=== PATIENT | male | born 1975 ===

== ENCOUNTER 2024-12-24 09:45 | Inpatient (IN) | payer OTHER ==
[~2024-12-24] VITALS: Ht 30.5 cm; Wt 103.4 kg
[2024-12-24 11:40] LABS: URINE APPEARANCE Clear; URINE BILIRRUBIN Negative (NEGATIVE); URINE BLOOD Negative; URINE COLOR Yellow; URINE GLUCOSE Negative (NEGATIVE); URINE KETONE Negative (NEGATIVE); URINE LEUKOCYTE Negative; URINE NITRATE Negative; URINE PROTEIN Negative (NEGATIVE); URINE UROBILINOGEN 0.2 E.U./dl
[2024-12-24 11:45] LABS: BASO % 0.9 % (0.1-1.2); EOS # 0.20 (0.04-0.54); EOS % 2.7 % (0.7-7.0); LYMPH # 2.49 (1.18-3.74); LYMPH % 33.1 % (19.3-53.1); MEAN PLATELET VOLUME 9.90 fl (9.4-12.4); MONO # 0.86 (0.24-0.82); MONO % 11.4 % (4.7-12.5); NEUT # 3.87 (1.56-6.13); NEUT % 51.4 % (34.0-71.1); RED CELL DISTRIBUTION WIDTH 13.5 % (11.6-14.4); URINE BACTERIA 13.1 uL (0.0-1933); URINE EPITHELIAL CELLS 3.5 uL (0.0-38.8); URINE RBC 3.3 uL (0.0-20.8); URINE WBC 8.7 uL (0.0-23.2)
[2024-12-24 11:51] LABS: URINE CAST 0.43 uL (0.0-1.40)
[2024-12-24 12:22] LABS: ALT/SGPT 64.0 U/L (12-78); AST/SGOT 22.0 U/L (15-37); BILIRUBIN TOTAL 0.72 mg/dL (0.3-1.2); BUN CREA RATIO 19.0 (7.0-25.0); CREATININE SERUM 0.8 mg/dL (0.70-1.30); GFR 102.32; GLOBULINA 3.8 G/DL (2.4-3.5); GLUCOSE FASTING 90.0 mg/dL (65-100); OSMOLALITY SERUM 283.0 MOSM/KG (275-295)
[2024-12-24 12:33] LABS: INR 1.08
[2024-12-31] MEDS ORDERED: METRONIDAZOLE/SODIUM CHLORIDE 500 MG/100 ML PIGGYBACK IV ONE (12:12)
[2024-12-31] MEDS ORDERED: CEFTRIAXONE SODIUM 2,000 MG VIAL ONE (12:12)
[2024-12-31] MEDS ORDERED: LIDOCAINE HCL 1%/EPINEPHRINE 20ML VIAL IJ ONE (13:51)
[2024-12-31] MEDS ORDERED: BUPIVACAINE HCL/MPF 0.5% 30ML VIAL ONE (13:51)
[2024-12-31] MEDS ORDERED: SUGAMMADEX SODIUM 200 MG/2 ML VIAL IV ONE (17:20)
[2024-12-31] MEDS ORDERED: MORPHINE SULFATE 4 MG/ML VIAL IV ONE (19:00)
[2024-12-31] MEDS ORDERED: RINGERS SOLUTION,LACTATED 1,000 ML IV SCH (21:00)
[2024-12-31] MEDS ORDERED: MORPHINE SULFATE 4 MG/ML VIAL IV PRN (21:00)
[2024-12-31 21:15] LABS: BASO % 0.2 % (0.1-1.2); EOS # 0.00 (0.04-0.54); EOS % 0.0 % (0.7-7.0); LYMPH # 1.07 (1.18-3.74); LYMPH % 5.4 % (19.3-53.1); MEAN PLATELET VOLUME 10.00 fl (9.4-12.4); MONO # 1.31 (0.24-0.82); MONO % 6.6 % (4.7-12.5); NEUT # 17.39 (1.56-6.13); NEUT % 87.3 % (34.0-71.1); RED CELL DISTRIBUTION WIDTH 13.4 % (11.6-14.4)
[2024-12-31] MEDS ORDERED: ONDANSETRON HCL 4 MG in 0.9 % SODIUM CHLORIDE 50 ML IV PRN (21:30)
[2025-01-01 00:05] VITALS: BP 134/85; O2SAT 95; O2SAT 97
[2025-01-01] MEDS ORDERED: METOCLOPRAMIDE HCL 5 MG/ML VIAL IV SCH (01:00)
[2025-01-01 06:56] LABS: BASO % 0.2 % (0.1-1.2); EOS # 0.01 (0.04-0.54); EOS % 0.1 % (0.7-7.0); LYMPH # 2.23 (1.18-3.74); LYMPH % 14.4 % (19.3-53.1); MEAN PLATELET VOLUME 10.50 fl (9.4-12.4); MONO # 1.47 (0.24-0.82); MONO % 9.5 % (4.7-12.5); NEUT # 11.73 (1.56-6.13); NEUT % 75.4 % (34.0-71.1); RED CELL DISTRIBUTION WIDTH 13.3 % (11.6-14.4)
[2025-01-01 07:39] LABS: BUN CREA RATIO 14.0 (7.0-25.0); CREATININE SERUM 0.81 mg/dL (0.70-1.30); GFR 100.87; GLUCOSE FASTING 99.0 mg/dL (65-100); OSMOLALITY SERUM 279.0 MOSM/KG (275-295)
[2025-01-01 08:21] VITALS: BP 131/78; O2SAT 96
[2025-01-01] MEDS ORDERED: CELECOXIB 200 MG CAPSULE PO SCH (09:00)
[2025-01-01] MEDS ORDERED: ACETAMINOPHEN 500 MG GEL..CAP PO PRN (12:45)
[2025-01-01] MEDS ORDERED: FAMOTIDINE/PF 20 MG/2 ML VIAL IV NR (13:30)
[2025-01-01] MEDS ORDERED: GABAPENTIN 300 MG CAPSULE PO NR (13:30)
[2025-01-01] MEDS ORDERED: SUGAMMADEX SODIUM 200 MG/2 ML VIAL IV ONE (16:00)
[2025-01-01 16:52] VITALS: BP 125/85; O2SAT 97
[2025-01-01] MEDS ORDERED: GABAPENTIN 300 MG CAPSULE PO SCH (17:00)
[2025-01-01] MEDS ORDERED: FAMOTIDINE/PF 20 MG/2 ML VIAL IV SCH (21:00)
[2025-01-02 00:58] VITALS: BP 116/76; O2SAT 100
[2025-01-02 06:44] LABS: BASO % 0.4 % (0.1-1.2); EOS # 0.04 (0.04-0.54); EOS % 0.4 % (0.7-7.0); LYMPH # 2.65 (1.18-3.74); LYMPH % 23.3 % (19.3-53.1); MEAN PLATELET VOLUME 10.90 fl (9.4-12.4); MONO # 1.26 (0.24-0.82); MONO % 11.1 % (4.7-12.5); NEUT # 7.36 (1.56-6.13); NEUT % 64.4 % (34.0-71.1); RED CELL DISTRIBUTION WIDTH 13.5 % (11.6-14.4)
[2025-01-02 07:16] LABS: BUN CREA RATIO 12.0 (7.0-25.0); CREATININE SERUM 0.84 mg/dL (0.70-1.30); GFR 96.72; GLUCOSE FASTING 84.0 mg/dL (65-100); OSMOLALITY SERUM 279.0 MOSM/KG (275-295)
[2025-01-02 08:00] VITALS: BP 124/77; O2SAT 98
[2025-01-02] MEDS ORDERED: POLYETHYLENE GLYCOL 3350 17 GM BLIST.PACK PO NR (10:00)
[2025-01-02] MEDS ORDERED: LACTULOSE 20 G/30 ML BLIST.PACK PO NR (10:00)
[2025-01-02 16:01] VITALS: BP 119/81; O2SAT 96
[2025-01-03 02:20] VITALS: BP 112/78; O2SAT 97
[2025-01-03 07:59] VITALS: BP 113/79; O2SAT 98
[2025-01-03] MEDS ORDERED: POLYETHYLENE GLYCOL 3350 17 GM BLIST.PACK PO SCH (09:00)
[2025-01-03] MEDS ORDERED: LACTULOSE 20 G/30 ML BLIST.PACK PO SCH (09:00)
== END 2025-01-03 13:02 | disposition home or self-care (01) | DRG 330 ==
LOC: O/R 12-31 09:00 → SURH 12-31 09:45 → SURG 12-31 19:58
PROVIDERS: Internal Medicine Geriatric Medicine; ADMIT Colon & Rectal Surgery; ATTEND Colon & Rectal Surgery
PROC: 0DBP4ZZ Excision of Rectum, Percutaneous Endoscopic Approach (ICD-10-PCS; 2024-12-31)
PROC: 0DJD8ZZ Inspection of Lower Intestinal Tract, Via Natural or Artificial Opening Endoscopic (ICD-10-PCS; 2024-12-31)
PROC: 0DTN4ZZ Resection of Sigmoid Colon, Percutaneous Endoscopic Approach (ICD-10-PCS; principal; 2024-12-31 18:30)
DX: K57.20 Diverticulitis of large intestine with perforation and abscess without bleeding (principal); K92.1 Melena; K66.0 Peritoneal adhesions (postprocedural) (postinfection)